=== PATIENT | female | born 2005 | race Caucasian/White ===

== ENCOUNTER 2023-04-18 14:19 | Outpatient (CLI) | payer BC, SELFPAY ==
[2023-04-18 14:39] LABS: Basophils Absolute Auto 0.09 K/uL (0.00-0.30); Basophils Percent Auto 0.9 % (0.0-3.0); Eosinophils Absolute Auto 0.05 K/uL (0.00-0.50); Eosinophils Percent Auto 0.5 % (0.0-7.0); Hematocrit 35.6 % (33.0-51.0); Hemoglobin* 11.4 gm/dL (12.0-16.0); Immature Granulocytes Abs Auto 0.02 K/uL (0.00-0.30); Immature Granulocytes Pct Auto 0.2 %; Lymphocytes Percent Auto 22.7 % (20-44); Mean Corpuscular HGB Conc 32 gm/dL (32-36); Mean Corpuscular Hemoglobin 31 pg (26-34); Mean Corpuscular Volume 96 fL (80-100); Monocytes Percent Auto 5.1 % (0.0-11.0); Neutrophils Absolute Auto 6.85 K/uL (1.7-7.0); Neutrophils Percent Auto 70.6 % (42.0-72.0); Platelet Count* 232 K/uL (140-440); RDW Coefficient of Variation % 12.7 % (11.5-15.5); Red Blood Count 3.72 m/uL (4.00-5.20)
[2023-04-18 14:44] LABS: Slide Review Reflex No
[2023-04-18 15:42] LABS: Chloride* 106 mmol/L (96-114)
[2023-04-18 15:43] LABS: Potassium* 4.6 mmol/L (3.6-5.1); Sodium* 139 mmol/L (135-149)
[2023-04-18 15:45] LABS: Alkaline Phosphatase* 62 U/L (40-150); Anion Gap 5 mEq/L (7-15); Aspartate Amino Transferase* 40 U/L (12-35); Bilirubin Total* 0.7 mg/dL (0.1-1.5); Blood Urea Nitrogen* 22 mg/dL (5-24); Carbon Dioxide* 28 mmol/L (20-32); Creatinine* 1.1 mg/dL (0.6-1.2); Estimated Glomerular Filt Rate 74 ml/min; Total Protein* 6.8 g/dL (6.0-8.3)
[2023-04-18 15:46] LABS: Alanine Aminotransferase* 28 U/L (4-35); Calcium* 9.2 mg/dL (8.7-10.8); Glucose* 92 mg/dL (60-115)
[2023-04-18 16:16] LABS: Thyroid Stimulating Hormone* 0.773 uIU/mL (0.270-4.20)
[2023-04-18 16:21] LABS: Ferritin* 17.3 ng/mL (6.24-137.0)
== END 2023-04-18 14:20 | disposition home or self-care (01) ==
PROVIDERS: PCP Family Medicine
DX: R53.83 Other fatigue (principal)
CPT/HCPCS: 36415; 80053; 82728; 84443; 85025

== ENCOUNTER 2023-05-02 14:00 | Outpatient (RCR) | payer BC, SELFPAY | END 2023-07-19 14:45 | disposition home or self-care (01) | PROVIDERS: PCP Family Medicine; Visit Provider Family Medicine | DX: S73.191S Other sprain of right hip, sequela (principal); M25.859 Other specified joint disorders, unspecified hip; M76.02 Gluteal tendinitis, left hip; M99.03 Segmental and somatic dysfunction of lumbar region; M25.551 Pain in right hip; Z51.89 Encounter for other specified aftercare | CPT/HCPCS: 97110; 97140; 97161 ==

== ENCOUNTER 2024-01-05 15:30 | Outpatient (RCR) | payer BC, SELFPAY | END 2024-01-12 14:12 | disposition home or self-care (01) | PROVIDERS: PCP Family Medicine; Visit Provider Orthopaedic Surgery | DX: S73.191A Other sprain of right hip, initial encounter (principal); M25.851 Other specified joint disorders, right hip; M25.551 Pain in right hip; M25.552 Pain in left hip; Z74.09 Other reduced mobility; R29.898 Other symptoms and signs involving the musculoskeletal system; Z98.890 Other specified postprocedural states; Z51.89 Encounter for other specified aftercare | CPT/HCPCS: 97110; 97112; 97140; 97161 ==

== ENCOUNTER 2024-01-11 08:45 | Outpatient (CLI) | payer BC, SELFPAY ==
--- NOTE | 2024-01-11 09:00 | FL_ITS ---
Patient: CLAUDIA MAYER Facility:?[facility] Patient ID:?[id number] Site Patient ID:?[id number]. Site :?2005 Study:?XRay-Hip Procedure Right hip injection pre-MRI-01/11/2024 9:47:12 AM Ordering Physician:Josie Dukes Final Report: PROCEDURE PERFORMED: FLUOROSCOPIC GUIDED right hip arthrogram. Indications: Concern for labral tear. FINDINGS (DESCRIPTION OF EACH PROCEDURE): Informed consent was obtained prior to the procedure. Fluoroscopic localization of the hip joint is performed. Skin was prepped and draped in a sterile fashion. 1% Lidocaine was used for local anesthesia. 22-gauge spinal needle was used to enter joint capsule. Entry into the capsule of the hip joint was confirmed with Omnipaque (1 cubic centimeters instill and confirmed via fluoroscopy). 12 mL of (ratio of lidocaine 1% 5 mL: Sterile saline 5 mL: Omnipaque 240 10 mL: Gadolinium 0.1 milliliter) were then injected into the right hip joint. The needle was then removed. The patient tolerated the procedure well with no immediate complications. POST-PROCEDURE DIAGNOSIS: FLUOROSCOPIC GUIDED right hip arthrogram MEDICATIONS GIVEN: . Lidocaine for local anesthesia. SPECIMEN(S): none COMPLICATIONS: no complications noted DRAINS: None ESTIMATED BLOOD LOSS: Less than 10 cc. PHYSICIAN(S) AND ASSISTANTS (if any): @ME@ Additional Comments: Patient tolerated the procedure well. No complications. Please call with questions. @ME@ [place] Protocol A. Pre-procedure verification complete yes1-relevant information / documentation available, reviewed and properly matched to the patient; 2-consent accurate and complete, 3-equipment and supplies available B. Site marking complete YesSite marked if not in continuous attendance with patient C. TIME OUT completed yesTime Out was conducted just prior to starting procedure to verify the eight required elements: 1-patient identity, 2-consent accurate and complete, 3-position, 4-correct side/site marked (if applicable), 5- procedure, 6-relevant images / results properly labeled and displayed (if applicable), 7-antibiotics / irrigation fluids (if applicable), 8-safety precautions. Dictated by Osito Melchor MD @ 01/11/2024 10:18:57 AM Signed by:?Osito Melchor MD @01/11/2024 10:18:57 AM (Electronic Signature)
--- NOTE | 2024-01-11 10:15 | MR_ITS ---
[facility] [address] [facility] [address] Phone:?[phone] Fax:?[phone] Referring Physician Information: Ernst Puckett M.D. [address] [facility] [address] Phone:?[phone] Fax:?[phone] Patient:?Jessie Jones D.O.B:?2005 Sex:?Female Phone:?[phone] [facility] MRN:?[id number] Exam Date:?01/11/2024 EXAM: MR ARTHROGRAM EXAMINATION OF THE RIGHT HIP CLINICAL INFORMATION: Right hip pain. History of injury. History of surgery. TECHNICAL INFORMATION: The study was performed following the intraarticular injection of a dilute gadolinium solution. Axial, coronal and sagittal dual-echo imaging of the hip was performed in addition to coronal STIR and coronal T1-weighted images of both hips and the pelvis. T1 sagittal and coronal fat sat were also performed. Correlation is made with preoperative exam dated June 08, 2023. INTERPRETATION: Hip joint: The hip joint is distended with contrast material status post arthrogram injection. No discrete loose body is seen. No subchondral edema signal or cystic change. No discrete lesion identified to indicate AVN. Status post femoral head/neck osteochondroplasty. No occult fracture/stress reaction involves the femoral neck. No evidence for a right hip joint chondral defect. No other appreciable changes of hip joint chondromalacia. There are surgical changes of superior and anterosuperior labral repair surgery. Deformity identified without a more discrete tear along the surgical site. Involving the anterosuperior labrum, extending inferiorly from the surgical repair site, series 8 images 13 through 18 demonstrate a 1.5 cm segment of partial-thickness tearing through the remainder of the anterosuperior labrum. The gluteus tendon insertions onto the greater trochanter are intact without tear or significant tendinopathy. No evidence of fluid signal abnormality to indicate trochanteric bursitis. Extensor the iliopsoas muscle and tendon insertions. No evidence for iliopsoas bursitis. Bones and joints: No evidence for an occult fracture/stress reaction involves the sacrum. There are no appreciable changes of SI joint arthrosis. There is no evidence for a fracture. No abnormal marrow edema pattern to indicate occult stress reaction or stress fracture. Musculotendinous structures: No evidence of acute musculotendinous injury. Specifically, no evidence of acute muscle tear, hematoma or other edema pattern. Intrapelvic contents: There is a small amount of free fluid within the pelvis, a nonspecific finding which may be seen normally in a patient of this age. No discrete intrapelvic mass is identified. Neurovascular structures: No discrete cyst, mass or other compression upon the portions visualized of sciatic or femoral nerves. CONCLUSION: 1. The right hip joint is distended with contrast material following arthrogram injection. 2. Status post repair of the superior labrum and just into the anterosuperior labrum. Associated deformity along this area as may be related to the surgery, without a discrete recurrent tear. 3. There is an approximate 1.5 cm segment of partial-thickness tearing involving the remainder of the anterosuperior labrum, extending inferiorly from the surgical repair site. 4. No evidence for a right hip joint chondral defect or other appreciable chondromalacia. 5. Status post femoral head/neck osteochondroplasty. No occult fracture/stress reaction involves the femoral neck. KES Electronically signed on 01/11/2024 12:10:00 PM by Fito Moreau M.D.
== END 2024-01-11 08:46 | disposition home or self-care (01) ==
LOC: RAD 08:46
PROVIDERS: PCP Family Medicine; Visit Provider Family Medicine
DX: M25.551 Pain in right hip (principal); M25.851 Other specified joint disorders, right hip; S73.191S Other sprain of right hip, sequela
CPT/HCPCS: 27093; 73525; 73722; 77002; A9575; Q9966

== ENCOUNTER 2024-10-23 14:30 | Outpatient (RCR) | payer BC, SELFPAY | END 2025-02-20 23:59 | disposition home or self-care (01) | PROVIDERS: PCP Family Medicine; Visit Provider Student in an Organized Health Care Education/Training Program | DX: M22.2X1 Patellofemoral disorders, right knee (principal); Z51.89 Encounter for other specified aftercare | CPT/HCPCS: 97110; 97140; 97161 ==